=== PATIENT | female | born 1980 | race Caucasian/White ===

== ENCOUNTER → 2018-02-26 | Outpatient (CLI) | payer BC ==
[~2018-02-26] MED LIST: ALBU90OI INH; CYCL10 PO; DULO60 PO; Diclofenac Sodi50 MG PO; IBUP800 PO; LEVSOD75 PO; TRAM50 PO; ZOLP10 PO
== END | disposition home or self-care (01) ==
LOC: PLD 07:37 → LAB SHORT 07:37
DX: N92.0 Excessive and frequent menstruation with regular cycle (principal)
CPT/HCPCS: 88305

== ENCOUNTER 2018-05-01 08:14 | Day surgery (SDC) | payer BC ==
[~2018-05-01] VITALS: Ht 170.2 cm; Wt 105.4 kg
[~2018-05-01 08:14] MED LIST changes: +ALBU90OI61; +CHOL10002; +CRINONE1.125 GM; +Ferrous Sulfat325 M2; +NIAC500; +ZOLP10
== END 2018-05-01 10:51 | disposition home or self-care (01) ==
LOC: ORSCSDS 08:14
PROVIDERS: Obstetrics & Gynecology
PROC: 0U5B8ZZ Destruction of Endometrium, Via Natural or Artificial Opening Endoscopic (ICD-10-PCS; principal; 2018-05-01 09:45)
DX: N92.0 Excessive and frequent menstruation with regular cycle (principal); N94.89 Other specified conditions associated with female genital organs and menstrual cycle; G47.33 Obstructive sleep apnea (adult) (pediatric); J45.909 Unspecified asthma, uncomplicated; E03.9 Hypothyroidism, unspecified; E66.01 Morbid (severe) obesity due to excess calories; Z68.36 Body mass index [BMI] 36.0-36.9, adult
CPT/HCPCS: J1100; J2250; J2405; J3010; J7120

== ENCOUNTER → 2019-02-17 | Outpatient (CLI) | payer BC ==
[2019-02-19 15:06] LABS: HPV 16 Negative (Negative); HPV 18 Negative (Negative); HPV OTHER HR TYPES Negative (Negative)
== END | disposition home or self-care (01) ==
LOC: LAB SHORT 18:33 → LAB 18:33
PROVIDERS: Obstetrics & Gynecology
DX: Z01.419 Encounter for gynecological examination (general) (routine) without abnormal findings (principal)
CPT/HCPCS: 87624; G0123

== ENCOUNTER → 2019-09-28 | Outpatient (CLI) | payer BC ==
[~2019-09-28] MED LIST changes: +BACL10 PO; +BENADRYL25 MG PO; +FAMO20 PO; +Loratadine10 MG PO; +PRED20 PO
== END | disposition home or self-care (01) ==
LOC: LAB 18:15 → LAB SHORT 18:15
DX: R30.0 Dysuria (principal)
CPT/HCPCS: 87077; 87086; 87186

== ENCOUNTER 2019-10-05 04:45 | Observation (INO) | payer BC ==
[~2019-10-05] VITALS: Ht 170.2 cm; Wt 104.3 kg
[~2019-10-05 04:45] MED LIST changes: -BACL10 PO; -BENADRYL25 MG PO; -FAMO20 PO; -Loratadine10 MG PO; -PRED20 PO
[2019-10-05 05:56] LABS: Hematocrit 42.6 % (33.0-51.0); Hemoglobin 13.7 g/dL (11.5-16.0); Mean Corpuscular HGB 28.2 pg (26.0-34.0); Mean Corpuscular HGB Conc 32.2 g/dL (31.5-36.5); Mean Corpuscular Volume 88 fL (80-100); Mean Platelet Volume 10.4 fL (9.1-12.4); Platelet Count 239 K/mm3 (150-400); RDW Coefficient Variation 12.5 % (11.7-14.2); Red Blood Cell Count 4.85 M/mm3 (3.80-5.20); White Blood Cell Count 5.69 K/mm3 (4.00-11.30)
[2019-10-05 06:14] LABS: BAND PERCENT MAN 14 % (0-8); BASOPHILS PERCENT MAN 0 % (0-2); EOSINOPHILS ABSOLUTE MAN 0.22 K/mm3 (0.00-0.68); EOSINOPHILS PERCENT MAN 4 % (0-6); LYMPHOCYTES ABSOLUTE MAN 0.96 K/mm3 (0.84-5.20); LYMPHOCYTES PERCENT MAN 17 % (21-46); MONOCYTES ABSOLUTE MAN 0.22 K/mm3 (0.16-1.47); MONOCYTES PERCENT MAN 4 % (4-13); NEUTROPHILS ABSOLUTE MAN 4.26 K/mm3 (1.96-9.15); SEG NEUTROPHILS PERCENT MAN 61 % (41-73); TOTAL CELLS COUNTED 100
[2019-10-05 06:16] LABS: Alanine Aminotransfer (ALT/SGP 27 U/L (12-78); Albumin, Blood 3.3 g/dL (3.4-5.0); Albumin/Globulin Ratio 0.9 (0.8-1.8); Alk Phos 76 U/L (50-136); Anion Gap 6 mmol/L (6-16); Aspartate Aminotrans (AST/SGOT 20 U/L (12-37); Bilirubin, Total 0.2 mg/dL (0.1-1.0); Blood Urea Nitrogen 11 mg/dL (8-24); Bun/Creatinine Ratio 10.9 (12.0-20.0); CO2, Blood 26 mmol/L (21-32); Calcium, Blood 8.6 mg/dL (8.5-10.1); Chloride, Blood 103 mmol/L (98-108); Creatinine, Blood 1.01 mg/dL (0.40-1.00); Globulin, Blood 3.8 g/dL (2.2-4.0); Glomerular Filtration Rate >60 (60-); Glucose, Blood 104 mg/dL (70-99); Potassium, Blood 4.1 mmol/L (3.5-5.5); Sodium, Blood 135 mmol/L (136-145); Total Protein, Blood 7.1 g/dL (6.4-8.2)
[2019-10-05 07:56] LABS: Source, Urine Clean Catch
[2019-10-05 08:00] LABS: Appearance, Urine Clear (Clear); Bilirubin, Urine Neg (Neg); Blood, Urine 2+ (Neg); Color, Urine Yellow (P-Yellow); Glucose Qualitative, Urine Neg (Neg); Ketones, Urine Neg (Neg); Leukocyte Esterase, Urine 1+ (Neg); Nitrite, Urine Neg (Neg); Protein, Urine Neg (Neg); Specific Gravity, Urine 1.005 (1.003-1.022); Urobilinogen, Urine NORM (Normal); pH, Urine 6.5 (5.0-8.0)
[2019-10-05 08:10] LABS: Bacteria Rare /hpf; Squamous Epithelial Cells Few /hpf (Few); White Blood Cells, Urine 0-2 /hpf (0-5)
[2019-10-05] MEDS ORDERED: BACL10 PO (12:24)
--- NOTE | 2019-10-05 12:45 | NUR ---
ASSUMED CARE PT ALERT AND ORIENTED. VS STABLE. O2 SATS REMAIN ABOVE 90% ON RA. LS CLEAR. PT DENIES SOB. BP STABLE. HR NSR. PT HAS RASH ON HER CHEST TO ABD AND BUE THAT IS UNCHANGED SINCE ADMISSION PER PT. PT INDEPENDENT IN ROOM. NS INFUSING PER ORDERS. WILL CONTINUE TO MONITOR CLOSELY. FAMILY AT BEDSIDE.
--- NOTE | 2019-10-05 17:44 | NUR ---
SHIFT SUMMARY PT ALERT AND ORIENTED. VS STABLE. PT DENIES ANY PAIN. PT COMPLAINS OF ITCHING ON HER ARMS AND CHEST. RASH UNCHANGED FROM INITIAL ASSESSMENT. NEW ORDERS FOR BENADRYL NEEDED FOR ITCHING. PT MEDICATED AND REPORTS ITCHING HAS SUBSIDED. PT INDEPENDENT IN ROOM. WILL CONTINUE TO MONITOR AND REPORT TO ONCOMING RN. CALL LIGHT IN REACH.
--- NOTE | 2019-10-06 02:38 | NUR ---
PROVIDER CONTACTED PT WITH INCREASED ITCHING AND DISCOMFORT AND REQUESTING BENEDRYL. NO CHANGES NOTED TO SKIN, DENIES DYSPNEA. VSS. DR AGUILERA CONTACTED AND ADDITIONAL DOSE BENADRYL ORDERED TO BE GIVEN NOW. WILL INPUT ORDER AND ADMINISTER.
[2019-10-06 05:31] LABS: Anion Gap 8 mmol/L (6-16); Blood Urea Nitrogen 13 mg/dL (8-24); Bun/Creatinine Ratio 14.8 (12.0-20.0); CO2, Blood 23 mmol/L (21-32); Calcium, Blood 8.3 mg/dL (8.5-10.1); Chloride, Blood 110 mmol/L (98-108); Creatinine, Blood 0.88 mg/dL (0.40-1.00); Glomerular Filtration Rate >60 (60-); Glucose, Blood 111 mg/dL (70-99); Potassium, Blood 4.1 mmol/L (3.5-5.5); Sodium, Blood 141 mmol/L (136-145)
[2019-10-06 05:40] LABS: BASOPHILS ABSOLUTE AUTO 0.02 K/mm3 (0.00-0.23); BASOPHILS PERCENT AUTO 0 % (0-2); EOSINOPHILS PERCENT AUTO 0 % (0-6); Hemoglobin 12.2 g/dL (11.5-16.0); IMMATURE GRAN ABSOLUTE AUTO 0.04 K/mm3 (0.00-0.10); IMMATURE GRAN PERCENT AUTO 1 % (0-1); LYMPHOCYTES ABSOLUTE AUTO 1.88 K/mm3 (0.84-5.20); LYMPHOCYTES PERCENT AUTO 25 % (21-46); MONOCYTES ABSOLUTE AUTO 0.42 K/mm3 (0.16-1.47); MONOCYTES PERCENT AUTO 6 % (4-13); Mean Corpuscular HGB 28.2 pg (26.0-34.0); Mean Corpuscular HGB Conc 32.1 g/dL (31.5-36.5); Mean Corpuscular Volume 88 fL (80-100); Mean Platelet Volume 10.6 fL (9.1-12.4); NEUTROPHILS ABSOLUTE AUTO 5.09 K/mm3 (1.96-9.15); NEUTROPHILS PERCENT AUTO 68 % (41-73); Platelet Count 225 K/mm3 (150-400); RDW Coefficient Variation 12.5 % (11.7-14.2); RDW Standard Deviation 40.6 fL (35.1-46.3); Red Blood Cell Count 4.33 M/mm3 (3.80-5.20); White Blood Cell Count 7.45 K/mm3 (4.00-11.30)
--- NOTE | 2019-10-06 06:19 | NUR ---
SHIFT SUMMARY PT HAS REMAINED AOX4 THROUGHOUT SHIFT. VSS. PLEASANT AND COOPERATIVE WITH CARE. PT CONTINUES TO HAVE DIFUSE RED RAD THROUGHOUT TRUNK, ARMS AND FACE. PT NOTED TO HAVE RELIEF AT START OF SHIFT WITH ORDERED MEDICATIONS, BUT RASH AND SKIN IRRITATION RETURNED WITH INCREASED ITCHING. PT MEDICATED WITH EXTRA DOSE OF BENADRYL WITH SOME RELIEF. PT RESTED THROUGHOUT THE NIGHT, WAKING EASILY FOR CARE.O2 SATS REMAINED >90% ON HOME CPAP WITH NO O2 BLEED IN. PT MEDICATED ONCE FOR PAIN THROUGHOUT THE NIGHT THAT DECREASED WITH ORDERED MEDICATION. PT REMAINS INDEPENDENT IN THE ROOM, CALLS APPRIATELY FOR CARE. NO OTHER CHANGES NOTED FROM INITIAL ASSESSMENT. WILL CONTINUE TO MONITOR AND REPORT TO ONCOMING SHIFT RN. BED IN LOW POSITION, CALL LIGHT IN REACH.
--- NOTE | 2019-10-06 08:00 | NUR ---
INITIAL ASSESSMENT PATIENT ALERT AND ORIENTED X 4, AFEBRILE. PATIENT INDEPENDENT IN ROOM. PATIENT SATTING 90% AND GREATER ON RA. PATIENT USES HOME CPAP AT NIGHT. PATIENT IN SR, HR IN THE 90S. BP STABLE. GI WNL. WNL. SKIN IS SLIGHTENED REDDENED/ VERY MINIMAL RASH. PATIENT REPORTS THAT RASH HAS DECREASED SIGNIFICANTLY. IV FLUSHED AND SALINE LOCKED. PATIENT GIVEN PRN BENADRYL FOR ITCHING. NO OTHER COMPLAINTS AT THIS TIME. BED LOW, CALL LIGHT IN REACH. WILL CONTINUE TO MONITOR.
[2019-10-06] MEDS ORDERED: Loratadine10 MG PO (09:37)
[2019-10-06] MEDS ORDERED: FAMO20 PO (09:37)
[2019-10-06] MEDS ORDERED: PRED20 PO (09:38)
[2019-10-06] MEDS ORDERED: BENADRYL25 MG PO (09:47)
--- NOTE | 2019-10-06 11:31 | NUR ---
PATIENT GIVEN DISCHARGE INFORMATION. PATIENT AGREED THAT SHE UNDERSTANDS ALL INSTRUCTIONS. VSS. PATIENT HAS NO COMPLAINTS AT THIS TIME. PATIENT DISCHARGED WITH FRIEND.
== END 2019-10-06 11:41 | disposition home or self-care (01) ==
LOC: ER 04:45 → ERHOLD 04:46 → PCU 12:31
PROVIDERS: Emergency Medicine; Nurse Practitioner Acute Care; ADMIT Family Medicine
DX: T88.6XXA Anaphylactic reaction due to adverse effect of correct drug or medicament properly administered, initial encounter (principal); T37.0X5A Adverse effect of sulfonamides, initial encounter; L50.0 Allergic urticaria; N20.0 Calculus of kidney; N39.0 Urinary tract infection, site not specified; J44.9 Chronic obstructive pulmonary disease, unspecified; D50.9 Iron deficiency anemia, unspecified; E03.9 Hypothyroidism, unspecified; J45.20 Mild intermittent asthma, uncomplicated; F41.9 Anxiety disorder, unspecified; F32.9 Major depressive disorder, single episode, unspecified; M79.7 Fibromyalgia; E66.01 Morbid (severe) obesity due to excess calories; Z68.36 Body mass index [BMI] 36.0-36.9, adult; Z79.51 Long term (current) use of inhaled steroids; Z79.52 Long term (current) use of systemic steroids; Z79.899 Other long term (current) drug therapy; Z88.2 Allergy status to sulfonamides; Z88.1 Allergy status to other antibiotic agents; Z88.8 Allergy status to other drugs, medicaments and biological substances; Z91.048 Other nonmedicinal substance allergy status; Z99.89 Dependence on other enabling machines and devices
CPT/HCPCS: 36415; 74176; 80048; 80053; 81001; 85025; 87086; 96361; 96374; 96375; 96376; 99284-25; G0378; J1200; J1885; J2930; J7030; J7512

== ENCOUNTER → 2019-11-02 | Outpatient (CLI) | payer BC ==
[~2019-11-02] MED LIST changes: +BACL10 PO; +BENADRYL25 MG PO; +FAMO20 PO; +Loratadine10 MG PO; +PRED20 PO
== END | disposition home or self-care (01) ==
LOC: LAB 18:14 → LAB SHORT 18:14
DX: R30.0 Dysuria (principal)
CPT/HCPCS: 87086

== ENCOUNTER → 2019-11-09 | Outpatient (CLI) | payer BC ==
[2019-11-09 15:19] LABS: Source, Urine Clean Catch
[2019-11-09 19:57] LABS: Appearance, Urine Cloudy (Clear); Bilirubin, Urine Neg (Neg); Blood, Urine 2+ (Neg); Color, Urine Yellow (P-Yellow); Glucose Qualitative, Urine Neg (Neg); Ketones, Urine 1+ (Neg); Leukocyte Esterase, Urine Neg (Neg); Nitrite, Urine Neg (Neg); Protein, Urine Neg (Neg); Specific Gravity, Urine 1.025 (1.003-1.022); Urobilinogen, Urine NORM (Normal)
[2019-11-09 19:59] LABS: Amorphous Mod (0-Heavy); Bacteria Mod /hpf; Calcium Oxalate Crystals Mod /hpf; Red Blood Cells, Urine 0-2 /hpf (0-2); Squamous Epithelial Cells Mod /hpf (Few); White Blood Cells, Urine 0-2 /hpf (0-5)
== END ==
LOC: LAB SHORT 15:17 → LAB 15:17
PROVIDERS: Nurse Practitioner Family
DX: R10.9 Unspecified abdominal pain (principal)
CPT/HCPCS: 81001

== ENCOUNTER → 2020-09-20 | Outpatient (CLI) | payer BC ==
[~2020-09-20] MED LIST changes: +CLON.5 PO; +CYMBALTA30 M1 PO; +Keflex500 MG PO; +Prednisone20 MG PO
== END ==
LOC: LAB 11:56
DX: R31.9 Hematuria, unspecified (principal)
CPT/HCPCS: 87086

== ENCOUNTER 2021-01-10 08:37 | Day surgery (SDC) | payer BC ==
[~2021-01-10] VITALS: Ht 170.2 cm; Wt 109.4 kg
[~2021-01-10 08:37] MED LIST changes: -CLON.5 PO; -CYMBALTA30 M1 PO; -Keflex500 MG PO
== END 2021-01-10 10:49 | disposition home or self-care (01) ==
LOC: ORSCSDS 08:37
PROVIDERS: Internal Medicine Gastroenterology
PROC: 0DB98ZX Excision of Duodenum, Via Natural or Artificial Opening Endoscopic, Diagnostic (ICD-10-PCS; principal; 2021-01-10 10:00)
PROC: 0DBP8ZX Excision of Rectum, Via Natural or Artificial Opening Endoscopic, Diagnostic (ICD-10-PCS; principal; 2021-01-10 10:00)
PROC: 0DB68ZX Excision of Stomach, Via Natural or Artificial Opening Endoscopic, Diagnostic (ICD-10-PCS; principal; 2021-01-10 10:00)
DX: R19.4 Change in bowel habit (principal); D64.9 Anemia, unspecified; K64.8 Other hemorrhoids; K57.30 Diverticulosis of large intestine without perforation or abscess without bleeding; K29.70 Gastritis, unspecified, without bleeding; K64.4 Residual hemorrhoidal skin tags; G47.33 Obstructive sleep apnea (adult) (pediatric); K21.9 Gastro-esophageal reflux disease without esophagitis; E66.01 Morbid (severe) obesity due to excess calories; Z68.37 Body mass index [BMI] 37.0-37.9, adult; Z79.899 Other long term (current) drug therapy
CPT/HCPCS: 88305; 88342; J2704; J7120

== ENCOUNTER 2021-02-18 11:05 | Emergency (ER) | payer BC ==
[~2021-02-18] VITALS: Ht 170.2 cm; Wt 108.9 kg
[2021-02-18] MEDS ORDERED: CLON.5 PO (11:55)
[2021-02-18] MEDS ORDERED: ZOLP10 PO (11:55)
[2021-02-18] MEDS ORDERED: CYMBALTA30 M1 PO (11:56)
[2021-02-18 12:12] LABS: Source, Urine Clean Catch
[2021-02-18 12:16] LABS: BASOPHILS ABSOLUTE AUTO 0.05 K/mm3 (0.00-0.23); BASOPHILS PERCENT AUTO 1 % (0-2); EOSINOPHILS ABSOLUTE AUTO 0.12 K/mm3 (0.00-0.68); EOSINOPHILS PERCENT AUTO 2 % (0-6); Hematocrit 41.6 % (33.0-51.0); Hemoglobin 13.4 g/dL (11.5-16.0); IMMATURE GRAN ABSOLUTE AUTO 0.02 K/mm3 (0.00-0.10); IMMATURE GRAN PERCENT AUTO 0 % (0-1); LYMPHOCYTES ABSOLUTE AUTO 2.31 K/mm3 (0.84-5.20); LYMPHOCYTES PERCENT AUTO 33 % (21-46); MONOCYTES ABSOLUTE AUTO 0.66 K/mm3 (0.16-1.47); MONOCYTES PERCENT AUTO 9 % (4-13); Mean Corpuscular HGB 28.2 pg (26.0-34.0); Mean Corpuscular HGB Conc 32.2 g/dL (31.5-36.5); Mean Corpuscular Volume 87 fL (80-100); NEUTROPHILS ABSOLUTE AUTO 3.88 K/mm3 (1.96-9.15); NEUTROPHILS PERCENT AUTO 55 % (41-73); Platelet Count 371 K/mm3 (150-400); RDW Coefficient Variation 12.6 % (11.7-14.2); RDW Standard Deviation 40.1 fL (35.1-46.3); Red Blood Cell Count 4.76 M/mm3 (3.80-5.20); White Blood Cell Count 7.04 K/mm3 (4.00-11.30)
[2021-02-18 12:20] LABS: Appearance, Urine Clear (Clear); Bilirubin, Urine Neg (Neg); Blood, Urine 1+ (Neg); Color, Urine Yellow (P-Yellow); Glucose Qualitative, Urine Neg (Neg); Ketones, Urine Neg (Neg); Leukocyte Esterase, Urine 1+ (Neg); Nitrite, Urine Neg (Neg); Protein, Urine Neg (Neg); Specific Gravity, Urine 1.015 (1.003-1.022); Urobilinogen, Urine NORM (Normal)
[2021-02-18 12:37] LABS: Alanine Aminotransfer (ALT/SGP 40 U/L (12-78); Albumin, Blood 3.4 g/dL (3.4-5.0); Albumin/Globulin Ratio 0.9 (0.8-1.8); Alk Phos 73 U/L (50-136); Anion Gap 5 mmol/L (6-16); Aspartate Aminotrans (AST/SGOT 26 U/L (12-37); Bilirubin, Total 0.3 mg/dL (0.1-1.0); Blood Urea Nitrogen 11 mg/dL (8-24); Bun/Creatinine Ratio 10.8 (12.0-20.0); CO2, Blood 25 mmol/L (21-32); Calcium, Blood 8.5 mg/dL (8.5-10.1); Chloride, Blood 107 mmol/L (98-108); Creatinine, Blood 1.02 mg/dL (0.40-1.00); Globulin, Blood 3.9 g/dL (2.2-4.0); Glomerular Filtration Rate >60 (60-); Glucose, Blood 74 mg/dL (70-99); Magnesium, Blood 1.8 mg/dL (1.6-2.4); Potassium, Blood 3.8 mmol/L (3.5-5.5); Sodium, Blood 137 mmol/L (136-145); Total Protein, Blood 7.3 g/dL (6.4-8.2)
[2021-02-18 12:41] LABS: Bacteria Many /hpf; Squamous Epithelial Cells Mod /hpf (Few)
[2021-02-18] MEDS ORDERED: Keflex500 MG PO (13:18)
== END 2021-02-18 14:20 | disposition home or self-care (01) ==
LOC: ER 11:05
PROVIDERS: Emergency Medicine
DX: N39.0 Urinary tract infection, site not specified (principal); Z79.899 Other long term (current) drug therapy; Z88.2 Allergy status to sulfonamides; Z88.1 Allergy status to other antibiotic agents; Z88.8 Allergy status to other drugs, medicaments and biological substances
CPT/HCPCS: 36415; 74176; 80053; 81001; 81025; 83690; 83735; 84145; 85025; 87086; 96374; 96375; 99284-25; A9270; J1885; J2405

== ENCOUNTER → 2021-06-07 | Outpatient (CLI) | payer BC ==
[~2021-06-07] MED LIST changes: +CLON.5 PO; +CYMBALTA30 M1 PO; +Keflex500 MG PO
== END | disposition home or self-care (01) ==
LOC: LAB 18:20 → LAB SHORT 18:20
DX: E16.2 Hypoglycemia, unspecified (principal)
CPT/HCPCS: 83036

== ENCOUNTER → 2021-09-12 | Outpatient (CLI) | payer BC | LOC: LAB 16:17 → LAB SHORT 16:17 | DX: J02.9 Acute pharyngitis, unspecified (principal) | CPT/HCPCS: 87081 ==

== ENCOUNTER → 2021-09-21 | Outpatient (CLI) | payer BC | END | disposition home or self-care (01) | LOC: LAB 12:18 → LAB SHORT 12:18 | DX: R82.998 Other abnormal findings in urine (principal) | CPT/HCPCS: 87086 ==

== ENCOUNTER → 2023-05-26 | Outpatient (CLI) | payer BC ==
[~2023-05-26] MED LIST changes: +CEFD300 PO
[2023-05-28 14:09] LABS: HPV 16 Negative (Negative); HPV 18 Negative (Negative); HPV OTHER HR TYPES Negative (Negative)
== END | disposition home or self-care (01) ==
LOC: LAB SHORT 10:10 → LAB 10:10
PROVIDERS: Family Medicine
DX: Z01.419 Encounter for gynecological examination (general) (routine) without abnormal findings (principal)
CPT/HCPCS: 87624; G0145

== ENCOUNTER → 2023-05-28 | Outpatient (CLI) | payer BC ==
[2023-05-28 16:23] LABS: BASOPHILS ABSOLUTE AUTO 0.05 K/mm3 (0.00-0.23); BASOPHILS PERCENT AUTO 1 % (0-2); EOSINOPHILS ABSOLUTE AUTO 0.18 K/mm3 (0.00-0.68); EOSINOPHILS PERCENT AUTO 3 % (0-6); Hematocrit 37.5 % (33.0-51.0); Hemoglobin 12.2 g/dL (11.5-16.0); IMMATURE GRAN ABSOLUTE AUTO 0.01 K/mm3 (0.00-0.10); IMMATURE GRAN PERCENT AUTO 0 % (0-1); LYMPHOCYTES ABSOLUTE AUTO 1.75 K/mm3 (0.84-5.20); LYMPHOCYTES PERCENT AUTO 31 % (21-46); MONOCYTES ABSOLUTE AUTO 0.44 K/mm3 (0.16-1.47); MONOCYTES PERCENT AUTO 8 % (4-13); Mean Corpuscular HGB 28.6 pg (26.0-34.0); Mean Corpuscular HGB Conc 32.5 g/dL (31.5-36.5); Mean Corpuscular Volume 88 fL (80-100); Mean Platelet Volume 10.8 fL (9.1-12.4); NEUTROPHILS ABSOLUTE AUTO 3.17 K/mm3 (1.96-9.15); NEUTROPHILS PERCENT AUTO 57 % (41-73); Platelet Count 304 K/mm3 (150-400); RDW Coefficient Variation 12.9 % (11.7-14.2); RDW Standard Deviation 41.4 fL (35.1-46.3); Red Blood Cell Count 4.26 M/mm3 (3.80-5.20)
[2023-05-28 16:42] LABS: Albumin, Blood 3.6 g/dL (3.4-5.0); Albumin/Globulin Ratio 1.1 (0.8-1.8); Bilirubin, Total 0.3 mg/dL (0.1-1.0); Bun/Creatinine Ratio 16.7 (12.0-20.0); Calcium, Blood 8.8 mg/dL (8.5-10.1); Creatinine, Blood 0.72 mg/dL (0.40-1.00); Globulin, Blood 3.4 g/dL (2.2-4.0); Potassium, Blood 4.1 mmol/L (3.5-5.5)
== END ==
LOC: LAB 15:05 → LAB SHORT 15:05
PROVIDERS: Family Medicine
DX: R07.9 Chest pain, unspecified (principal)
CPT/HCPCS: 80053; 84484; 85025; 85379

== ENCOUNTER 2023-10-27 04:07 | Emergency (ER) | payer BC ==
[~2023-10-27] VITALS: Ht 167.6 cm; Wt 99.8 kg
[2023-10-27] MEDS ORDERED: Hydroxychloroq200 MG PO (05:33)
[2023-10-27] MEDS ORDERED: Cyclobenzaprine5 MG (05:33)
[2023-10-27 06:05] LABS: BASOPHILS ABSOLUTE AUTO 0.05 K/mm3 (0.00-0.23); BASOPHILS PERCENT AUTO 1 % (0-2); EOSINOPHILS ABSOLUTE AUTO 0.16 K/mm3 (0.00-0.68); EOSINOPHILS PERCENT AUTO 3 % (0-6); Hematocrit 36.3 % (33.0-51.0); Hemoglobin 11.7 g/dL (11.5-16.0); IMMATURE GRAN ABSOLUTE AUTO 0.02 K/mm3 (0.00-0.10); IMMATURE GRAN PERCENT AUTO 0 % (0-1); LYMPHOCYTES ABSOLUTE AUTO 1.82 K/mm3 (0.84-5.20); LYMPHOCYTES PERCENT AUTO 30 % (21-46); MONOCYTES ABSOLUTE AUTO 0.68 K/mm3 (0.16-1.47); MONOCYTES PERCENT AUTO 11 % (4-13); Mean Corpuscular HGB 28.2 pg (26.0-34.0); Mean Corpuscular HGB Conc 32.2 g/dL (31.5-36.5); Mean Corpuscular Volume 88 fL (80-100); Mean Platelet Volume 10.8 fL (9.1-12.4); NEUTROPHILS ABSOLUTE AUTO 3.32 K/mm3 (1.96-9.15); NEUTROPHILS PERCENT AUTO 55 % (41-73); Platelet Count 260 K/mm3 (150-400); RDW Standard Deviation 41.3 fL (35.1-46.3); Red Blood Cell Count 4.15 M/mm3 (3.80-5.20); White Blood Cell Count 6.05 K/mm3 (4.00-11.30)
[2023-10-27 06:24] LABS: Albumin, Blood 3.3 g/dL (3.4-5.0); Albumin/Globulin Ratio 0.9 (0.8-1.8); Bilirubin, Total 0.4 mg/dL (0.1-1.0); Bun/Creatinine Ratio 13.7 (12.0-20.0); Calcium, Blood 8.4 mg/dL (8.5-10.1); Creatinine, Blood 0.88 mg/dL (0.40-1.00); Globulin, Blood 3.5 g/dL (2.2-4.0); Potassium, Blood 4.1 mmol/L (3.5-5.5); Total Protein, Blood 6.8 g/dL (6.4-8.2)
[2023-10-27 09:37] LABS: Source, Urine Clean Catch
[2023-10-27 09:44] LABS: Bilirubin, Urine Neg (Neg); Blood, Urine Neg (Neg); Glucose Qualitative, Urine Neg (Neg); Ketones, Urine Neg (Neg); Leukocyte Esterase, Urine Neg (Neg); Nitrite, Urine Neg (Neg); Protein, Urine Neg (Neg); Urobilinogen, Urine NORM (Normal)
[2023-10-27 10:10] LABS: Appearance, Urine Clear (Clear); Color, Urine Yellow (P-Yellow)
[2023-10-27 10:41] VITALS: BP 112/65
== END 2023-10-27 11:07 | disposition home or self-care (01) ==
LOC: ER 04:07
PROVIDERS: Emergency Medicine
DX: R10.9 Unspecified abdominal pain (principal); X50.9XXA Other and unspecified overexertion or strenuous movements or postures, initial encounter
CPT/HCPCS: 74177; 80053; 81003; 83690; 85025; 96374-59; 96375; 99284-25; J1885; J2405; J7030; Q9967

== ENCOUNTER 2024-06-03 07:38 | Day surgery (SDC) | payer BC ==
[~2024-06-03] VITALS: Ht 170.2 cm; Wt 107.5 kg
[~2024-06-03 07:38] MED LIST changes: +Cyclobenzaprine5 MG; +Hydroxychloroq200 MG PO; +Lactated Ringer's 1,000 ML IV ONE
[2024-06-03] MEDS ORDERED: NABU500 PO (08:27)
[2024-06-03] MEDS ORDERED: GABA300 PO (08:27)
[2024-06-03] MEDS ORDERED: ALBU90OI INH (08:28)
[2024-06-03] MEDS ORDERED: THERA-D2000 UNIT PO (08:28)
[2024-06-03] MEDS ORDERED: Lactated Ringer's 1,000 ML IV ONE ×2 (08:34→10:30)
[2024-06-03] MEDS ORDERED: Rocuronium Bromide 10 MG/ML 5ML Injection IV ONE (09:18)
[2024-06-03] MEDS ORDERED: propofoL 20 ML IV ONE ×2 (09:19)
[2024-06-03] MEDS ORDERED: FentaNYL Citrate 50 MCG/ML 2 ML Injection ONE ×2 (09:19→09:48)
--- NOTE | 2024-06-03 09:42 | NUR ---
06/03/24 0941 Desiree Mcallister LEFT ARM TUCKED, TOWEL ROLL BETWEEN HAND AND EDGE OF BED. 0.15ML OF EPI (1MG/ML) ADDED TO 30MG OF 0.5% BUPIVACAINE TO MAKE BUPIVACAINE 0.5% WITH EPI 1:200,000.
[2024-06-03] MEDS ORDERED: Labetalol HCL 5 MG/ML 4ML Injection (Single Dose) ONE (09:52)
[2024-06-03] MEDS ORDERED: EPINEPhrine HCl 1 MG/ML 1ML Amp XX ONE ×2 (09:53)
[2024-06-03] MEDS ORDERED: Bupivacaine 0.5% HCl 5 MG/ML 30MLVIAL INJ ONE ×2 (09:53)
[2024-06-03] MEDS ORDERED: Metoclopramide HCl 5MG / ML 2ML Vial ONE (10:05)
[2024-06-03] MEDS ORDERED: Ondansetron HCl 2 MG / ML 2ML Vial ONE (10:05)
[2024-06-03] MEDS ORDERED: Ketorolac Tromethamine 30mg Vial ONE (10:05)
[2024-06-03] MEDS ORDERED: Dexamethasone Sod Phos 10 MG/ML 1ML VIAL ONE (10:05)
[2024-06-03] MEDS ORDERED: Sugammadex Sodium 200 MG/2ML SDV (100 MG/ML) ONE ×2 (10:10)
[2024-06-03] MEDS ORDERED: Atropine Sulfate 0.4 MG/1 ML Vial ONE (10:21)
[2024-06-03 10:35] VITALS: BP 130/65
--- NOTE | 2024-06-03 10:36 | NUR ---
06/03/24 1036 OTIS WHITFIELD PT ADMITS THAT IT FEELS LIKE IT HARD TO BREATH. PT IS RESTING PEACEFULLY. O2 SAT ON RA IS 97-100%. PT FALLS BACK TO SLEEP EASILY.
[2024-06-03] MEDS ORDERED: Ibuprofen 400 MG Tab ONE (11:20)
--- NOTE | 2024-06-03 11:39 | NUR ---
06/03/24 1139 OTIS WHITFIELD, EX AT BEDSIDE PER PT REQUEST. IBUPROFEN 800MG GIVEN PO.
== END 2024-06-03 11:50 | disposition home or self-care (01) ==
LOC: ORSCSDS 07:38
PROVIDERS: Obstetrics & Gynecology
PROC: 0UB74ZZ Excision of Bilateral Fallopian Tubes, Percutaneous Endoscopic Approach (ICD-10-PCS; principal; 2024-06-03 09:00)
DX: Z30.2 Encounter for sterilization (principal); G47.33 Obstructive sleep apnea (adult) (pediatric); E03.9 Hypothyroidism, unspecified; E66.9 Obesity, unspecified; Z68.37 Body mass index [BMI] 37.0-37.9, adult; Z86.16 Personal history of COVID-19; Z79.899 Other long term (current) drug therapy
CPT/HCPCS: 88302; A9270; J0171; J0461; J1100; J1885; J2405; J2704; J2765; J3010; J7120